=== PATIENT | female | born 1965 | race Caucasian/White ===

== ENCOUNTER 2024-03-30 11:48 | Day surgery (SDC) | payer OTHER ==
[~2024-03-30] VITALS: Ht 157.5 cm; Wt 83.0 kg
[2024-03-30] MEDS ORDERED: fentaNYL citrate 0.05 MG/ML VIAL ONE (12:55)
[2024-03-30] MEDS ORDERED: MIDAZOLAM 5 MG/5 ML VIAL ONE (13:00)
[2024-03-30] MEDS: MIDAZOLAM 5 MG/5 ML VIAL IV ONE (13:02)
[2024-03-30] MEDS: fentaNYL citrate 0.05 MG/ML VIAL IVP ONE (13:03)
[2024-03-30] MEDS: LIDOCAINE 2% 100 MG/5 ML UJET TP ONE (13:05)
== END 2024-03-30 14:06 | disposition home or self-care (01) ==
LOC: MDS 11:48 → MMU 11:52 → MDS 14:06
PROVIDERS: ATTEND Internal Medicine Gastroenterology
DX: R19.5 Other fecal abnormalities (principal); R19.7 Diarrhea, unspecified; I10 Essential (primary) hypertension; E11.9 Type 2 diabetes mellitus without complications; F41.9 Anxiety disorder, unspecified; E78.5 Hyperlipidemia, unspecified; J44.9 Chronic obstructive pulmonary disease, unspecified; G47.30 Sleep apnea, unspecified; K64.8 Other hemorrhoids; Z80.3 Family history of malignant neoplasm of breast; Z91.041 Radiographic dye allergy status; Z79.899 Other long term (current) drug therapy; Z98.890 Other specified postprocedural states
CPT/HCPCS: 45378; 82948; J2250; J3010